=== PATIENT | female | born 1990 | race Caucasian/White ===

== ENCOUNTER 2018-05-25 01:58 | Emergency (ER) | payer MEDICAID ==
[~2018-05-25] VITALS: Ht 152.4 cm; Wt 72.6 kg
[2018-05-25 02:06] VITALS: BP_SYST 113
[2018-05-25 02:43] VITALS: BP_SYST 122
== END 2018-05-25 02:43 ==
LOC: SED 01:58
DX: Z02.89 Encounter for other administrative examinations (principal)
CPT/HCPCS: 99283

== ENCOUNTER 2018-05-25 11:24 | Emergency (ER) | payer MEDICAID ==
[~2018-05-25] VITALS: Ht 154.9 cm; Wt 72.6 kg
[2018-05-25 11:33] VITALS: BP_SYST 133
[2018-05-25 11:40] VITALS: BP_SYST 133
== END 2018-05-25 11:40 ==
LOC: SED 11:24
DX: L30.9 Dermatitis, unspecified (principal); R03.0 Elevated blood-pressure reading, without diagnosis of hypertension
CPT/HCPCS: 99283

== ENCOUNTER 2020-07-09 07:35 | Emergency (ER) | payer MEDICAID ==
[~2020-07-09] VITALS: Ht 154.9 cm; Wt 81.6 kg
[2020-07-09 07:35] VITALS: BP_SYST 147
--- NOTE | 2020-07-09 07:35 | NUR ---
BROUGHT IN VIA WHEELCHAIR, PLACED IN BED #5 AND TRIAGED. REPORT GIVEN TO DAHIANA
--- NOTE | 2020-07-09 07:45 | NUR ---
PT BIB FOR RUQ ABD PAIN, N/V. STATES SHE WAS SUPPOSED TO HAVE HER GALLBLADDDER REMOVED LAST MONTH BUT ELOPED FROM THE HOSPITAL. PT IS AAOX4, V/S STABLE
--- NOTE | 2020-07-09 07:50 | NUR ---
ER DR. RAMEY AT THE BEDSIDE EVALUATING PT
--- NOTE | 2020-07-09 08:00 | NUR ---
PT ABLE TO VOID, SPECIMEN SENT TO LAB
--- NOTE | 2020-07-09 08:10 | NUR ---
# 20 gauge angiocath placed to RAC. Use of asceptic technique. Opsite placed over site. Blood return noted. Blood for lab drawn from site. Flushed with 10 cc of normal saline. No evidence of infiltration noted. Patient tolerated well.
[2020-07-09] MEDS ORDERED: KETOROLAC TROMETHAMINE 30 MG VIAL IVP ONE (08:15)
--- NOTE | 2020-07-09 08:20 | NUR ---
ULTRASOUND AT THE BEDSIDE
[2020-07-09 08:28] LABS: BASOPHILS % (AUTO) 0.4 % (0.0-2.0); EOSINOPHILS # (AUTO) 0.4 K/uL (0.0-0.4); EOSINOPHILS % (AUTO) 3.9 % (0.0-4.0); HEMATOCRIT 39.6 % (36-48); HEMOGLOBIN 13.3 g/dL (12.0-16.0); LYMPHOCYTES # (AUTO) 3.3 K/uL (1.0-5.5); LYMPHOCYTES % (AUTO) 30.4 % (20.5-51.5); MEAN CORPUSCULAR HEMOGLOBIN 30 pg (27-31); MEAN CORPUSCULAR HGB CONC 34 % (32-36); MEAN CORPUSCULAR VOLUME 89 fL (79.0-98.0); MONOCYTES # (AUTO) 0.7 K/uL (0.0-1.0); MONOCYTES % (AUTO) 6.1 % (1.7-9.3); NEUTROPHILS # (AUTO) 6.5 K/uL (1.8-7.7); NEUTROPHILS % (AUTO) 59.2 % (40.0-70.0); PLATELET COUNT (AUTO) 319 K/uL (130-430); RED BLOOD CELL COUNT(AUTO) 4.46 MIL/uL (4.2-6.2); RED CELL DISTRIBUTION WIDTH 13.3 % (9.0-15.0)
[2020-07-09 08:39] LABS: BILIRUBIN,URINE NEGATIVE (NEGATIVE); BLOOD, URINE NEGATIVE (NEGATIVE); CLARITY/URINE SL CLOUDY (CLEAR); COLOR,URINE YELLOW (YELLOW); GLUCOSE,URINE NEGATIVE (NEGATIVE); KETONES,URINE TRACE (NEGATIVE); LEUKOCYTE ESTERASE ,URINE NEGATIVE (NEGATIVE); NITRITE, URINE NEGATIVE (NEGATIVE); PROTEIN URINE NEGATIVE (NEGATIVE); UROBILINOGEN,URINE 0.2 (0.2-1.0)
[2020-07-09 09:09] LABS: CALCIUM 8.6 mg/dL (8.4-11.0); CREATININE 0.69 mg/dL (0.55-1.30); POTASSIUM 3.2 mmol/L (3.5-5.1)
[2020-07-09 09:14] LABS: ALBUMIN 3.9 g/dL (3.4-4.8); TOTAL BILIRUBIN 0.3 mg/dL (0.0-1.0)
--- NOTE | 2020-07-09 10:07 | NUR ---
Patient given written and verbal discharge instructions and verbalizes understanding. ER MD discussed with patient the results and treatment provided. Patient in stable condition. ID arm band removed. IV catheter removed intact and dressing applied, catheter tip intact Rx of NAPROXEN, NORCO given. Patient educated on pain management and to follow up with PMD. Pain Scale 0/10. Opportunity for questions provided and answered. Medication side effect fact sheet provided.
== END 2020-07-09 10:07 | disposition home or self-care (01) ==
LOC: SED 07:35
DX: K80.50 Calculus of bile duct without cholangitis or cholecystitis without obstruction (principal)
CPT/HCPCS: 36415; 76700; 80053; 81003; 83690; 85025; 96374; 99284; J1885

== ENCOUNTER 2021-02-03 03:14 | Emergency (ER) | payer MEDICAID, SELFPAY ==
[~2021-02-03] VITALS: Ht 154.9 cm; Wt 90.7 kg
[2021-02-03 03:19] VITALS: BP_SYST 116
--- NOTE | 2021-02-03 03:19 | NUR ---
Came in ER per [facility] brought by S paramedics from [facility] accompanied by debt recovery officer this 30 year old female, AAOX4, breathing spontaneously at room air, not in distress noted. With chief complaints of Abdominal pain with nausea/ vomiting 30mins ago, Known case with gallbladder infection on antibiotic, scheduled for gallbladder removal 02/04/2021, no other medical history, no known allergy
--- NOTE | 2021-02-03 03:30 | NUR ---
Seen and examined by Dr. Stephens, ER Attending
--- NOTE | 2021-02-03 03:45 | NUR ---
# 20 gauge angiocath placed to left antecubital. Use of asceptic technique. Opsite placed over site. Blood return noted. Blood for lab drawn from site. Flushed with 10 cc of normal saline. No evidence of infiltration noted. Patient tolerated well.
--- NOTE | 2021-02-03 04:05 | NUR ---
Ultrasoud tech at bedside doing abdomen/pelvis ultrasound
[2021-02-03] MEDS: NACL 0.9% 1,000 ML IV ONE (04:09)
[2021-02-03 04:17] LABS: BILIRUBIN,URINE NEGATIVE (NEGATIVE); BLOOD, URINE NEGATIVE (NEGATIVE); CLARITY/URINE CLEAR (CLEAR); GLUCOSE,URINE NEGATIVE (NEGATIVE); KETONES,URINE NEGATIVE (NEGATIVE); LEUKOCYTE ESTERASE ,URINE TRACE (NEGATIVE); NITRITE, URINE NEGATIVE (NEGATIVE); PROTEIN URINE NEGATIVE (NEGATIVE); UROBILINOGEN,URINE 0.2 (0.2-1.0)
[2021-02-03 04:18] LABS: BASOPHILS % (AUTO) 0.4 % (0.0-2.0); EOSINOPHILS # (AUTO) 0.3 K/uL (0.0-0.4); EOSINOPHILS % (AUTO) 2.2 % (0.0-4.0); HEMATOCRIT 38.1 % (36-48); HEMOGLOBIN 12.8 g/dL (12.0-16.0); LYMPHOCYTES # (AUTO) 2.4 K/uL (1.0-5.5); LYMPHOCYTES % (AUTO) 19.6 % (20.5-51.5); MEAN CORPUSCULAR HEMOGLOBIN 30 pg (27-31); MEAN CORPUSCULAR HGB CONC 34 % (32-36); MEAN CORPUSCULAR VOLUME 89 fL (79.0-98.0); MONOCYTES # (AUTO) 0.7 K/uL (0.0-1.0); MONOCYTES % (AUTO) 5.5 % (1.7-9.3); NEUTROPHILS # (AUTO) 8.8 K/uL (1.8-7.7); NEUTROPHILS % (AUTO) 72.3 % (40.0-70.0); PLATELET COUNT (AUTO) 305 K/uL (130-430); RED BLOOD CELL COUNT(AUTO) 4.28 MIL/uL (4.2-6.2); RED CELL DISTRIBUTION WIDTH 13.8 % (9.0-15.0); WHITE BLOOD COUNT (AUTO) 12.1 K/uL (4.8-10.8)
[2021-02-03 04:29] LABS: CALCIUM 8.6 mg/dL (8.4-11.0); CREATININE 0.68 mg/dL (0.55-1.30); POTASSIUM 3.7 mmol/L (3.5-5.1)
[2021-02-03 04:32] LABS: COLOR,URINE STRAW (YELLOW)
[2021-02-03 05:03] LABS: ALBUMIN 3.6 g/dL (3.4-4.8); TOTAL BILIRUBIN 0.1 mg/dL (0.0-1.0)
[2021-02-03 05:13] LABS: BACTERIA,URINE FEW /HPF (None Seen)
[2021-02-03] MEDS: KETOROLAC TROMETHAMINE 30 MG VIAL IVP ONE (05:21)
[2021-02-03] MEDS ORDERED: KETOROLAC TROMETHAMINE 30 MG VIAL ONE (05:22)
--- NOTE | 2021-02-03 05:23 | NUR ---
Medication given as ordered, health teaching provided and verbalized understanding
--- NOTE | 2021-02-03 06:01 | NUR ---
Re-assessed by DR. COCHRAN, for discharge
[2021-02-03 06:44] VITALS: BP_SYST 110
--- NOTE | 2021-02-03 06:44 | NUR ---
Patient given written and verbal discharge instructions and verbalizes understanding. ER MD discussed with patient the results and treatment provided. Patient in stable condition. ID arm band removed. IV catheter removed intact and dressing applied, no active bleeding. no Rx of given. Patient educated on pain management and to follow up with PMD. Pain Scale 0/10. Opportunity for questions provided and answered. Discharged ambulatory accompanied by [facility] officer
== END 2021-02-03 06:44 ==
LOC: SED 03:14
DX: R10.10 Upper abdominal pain, unspecified (principal); R11.2 Nausea with vomiting, unspecified
CPT/HCPCS: 36415; 76705; 80053; 81000; 83690; 84702; 85025; 87086; 96361; 96374; 99284; J1885; J7030

== ENCOUNTER 2021-03-24 17:24 | Emergency (ER) | payer MEDICAID, SELFPAY ==
[~2021-03-24] VITALS: Ht 152.4 cm; Wt 72.6 kg
--- NOTE | 2021-03-24 17:27 | NUR ---
Patient to ER bed H3 to gown for evaluation. Side rails up.
[2021-03-24 17:29] VITALS: BP_SYST 118
--- NOTE | 2021-03-24 19:18 | NUR ---
Patient BIB by law enforcement . C/O medical clearance x today. 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 A/O,X4, RLQ abdominal , pain rate 10/10.
[2021-03-24 19:22] LABS: BASOPHILS % (AUTO) 0.4 % (0.0-2.0); EOSINOPHILS # (AUTO) 0.1 K/uL (0.0-0.4); EOSINOPHILS % (AUTO) 0.9 % (0.0-4.0); HEMATOCRIT 37.4 % (36-48); HEMOGLOBIN 12.5 g/dL (12.0-16.0); LYMPHOCYTES # (AUTO) 2.7 K/uL (1.0-5.5); LYMPHOCYTES % (AUTO) 24.4 % (20.5-51.5); MEAN CORPUSCULAR HEMOGLOBIN 30 pg (27-31); MEAN CORPUSCULAR HGB CONC 34 % (32-36); MEAN CORPUSCULAR VOLUME 89 fL (79.0-98.0); MONOCYTES # (AUTO) 0.5 K/uL (0.0-1.0); MONOCYTES % (AUTO) 4.8 % (1.7-9.3); NEUTROPHILS # (AUTO) 7.7 K/uL (1.8-7.7); NEUTROPHILS % (AUTO) 69.5 % (40.0-70.0); PLATELET COUNT (AUTO) 287 K/uL (130-430); RED BLOOD CELL COUNT(AUTO) 4.19 MIL/uL (4.2-6.2); RED CELL DISTRIBUTION WIDTH 13.9 % (9.0-15.0)
--- NOTE | 2021-03-24 19:24 | NUR ---
ER Dr. Stephens at bedside examining patient.
[2021-03-24 19:37] LABS: CALCIUM 8.8 mg/dL (8.4-11.0); CREATININE 0.65 mg/dL (0.55-1.30); POTASSIUM 3.9 mmol/L (3.5-5.1)
--- NOTE | 2021-03-24 19:42 | NUR ---
Patient transported to radiology via wheel chair, accompanied by quality control engineering technician.
[2021-03-24 19:43] LABS: ALBUMIN 3.6 g/dL (3.4-4.8); TOTAL BILIRUBIN 0.2 mg/dL (0.0-1.0)
[2021-03-24] MEDS ORDERED: KETOROLAC TROMETHAMINE 30 MG VIAL IVP ONE (19:45)
--- NOTE | 2021-03-24 19:51 | NUR ---
Returned from radiology, back to [facility].
[2021-03-24 20:37] LABS: BILIRUBIN,URINE NEGATIVE (NEGATIVE); BLOOD, URINE NEGATIVE (NEGATIVE); CLARITY/URINE SL CLOUDY (CLEAR); COLOR,URINE YELLOW (YELLOW); GLUCOSE,URINE NEGATIVE (NEGATIVE); KETONES,URINE NEGATIVE (NEGATIVE); LEUKOCYTE ESTERASE ,URINE TRACE (NEGATIVE); NITRITE, URINE NEGATIVE (NEGATIVE); PH,URINE 7.5 (5.0-8.0); PROTEIN URINE TRACE (NEGATIVE); UROBILINOGEN,URINE 0.2 (0.2-1.0)
[2021-03-24 22:05] VITALS: BP_SYST 118
--- NOTE | 2021-03-24 22:05 | NUR ---
Patient D/C to custody with law enforcement.
[2021-03-24 22:22] LABS: BACTERIA,URINE MODERATE /HPF (None Seen); MUCUS,URINE None Seen /LPF (None Seen); RBC,URINE 0-3 /HPF (0-3); URINE AMORPHOUS PHOSPHATES 3+ /HPF (None Seen)
== END 2021-03-24 22:05 ==
LOC: SED 17:24
DX: R10.30 Lower abdominal pain, unspecified (principal); R11.2 Nausea with vomiting, unspecified
CPT/HCPCS: 36415; 74176; 76376; 80053; 81000; 81025; 83690; 85025; 87086; 96372; 99284; J1885